=== PATIENT | male | born 1995 | race Asian ===

== ENCOUNTER 2017-05-15 16:05 | Emergency (ER) | payer BC ==
[2017-05-15] MEDS ORDERED: Amoxicillin/Clavulanate TAB* 875 MG PO ONE (18:49)
--- NOTE | 2017-05-15 19:03 | UC ---
Throat Pain/Nasal Gustavo HPI - HPI Summary HPI Summary: SEVEN DAYS OF SINUS PAIN, CONGESTION, SORE THROAT AND FEVER. - History of Current Complaint Chief Complaint: UCRespiratory Stated Complaint: SINUS PAIN,FEVER,CONGESTION Time Seen by Provider: 05/15/17 17:55 Hx Obtained From: Patient Onset/Duration: Gradual Onset, Lasting Weeks Severity: Moderate Cough: Nonproductive Associated Signs & Symptoms: Positive: Hoarseness, Sinus Discomfort, Nasal Discharge, Fever - Epiglottits Risk Factors Epiglottis Risk Factors: Negative - Allergies/Home Medications Allergies/Adverse Reactions: Allergies Allergy/AdvReac Type Severity Reaction Status Date / Time No Known Allergies Allergy Verified 06/07/16 15:14 Home Medications: Home Medications Methylphenidate ER TAB* [Concerta ER TAB*] 18 mg PO DAILY 05/15/17 [History Confirmed 05/15/17] Phenylephrine W/ Acetaminophen [Tylenol Sinus Congestion 5-325 mg] 1 tab PO 06/21 [History] Pseudoephedrine-Guaifenesin [Mucinex D 60-600 mg] 1 tab PO 05/15/17 [History] PMH/Surg Hx/FS Hx/Imm Hx Previously Healthy: Yes - Surgical History Surgical History: Yes Surgery Procedure, Year, and Place: TONSILLECTOMY AGE 13. SEPTOPLASTY 2011. LASIK - Family History Known Family History: Negative: Respiratory Disease - Social History Occupation: Student Lives: With Family Alcohol Use: None Substance Use Type: None Smoking Status (MU): Never Smoked Tobacco Review of Systems Constitutional: Fever, Chills Skin: Negative Eyes: Negative ENT: Sore Throat, Nasal Discharge, Sinus Congestion, Sinus Pain/Tenderness Respiratory: Cough Cardiovascular: Negative Gastrointestinal: Negative Genitourinary: Negative Motor: Negative Neurovascular: Negative Musculoskeletal: Negative Neurological: Negative Psychological: Negative All Other Systems Reviewed And Are Negative: Yes Physical Exam Triage Information Reviewed: Yes Appearance: Well-Appearing, No Pain Distress, Well-Nourished Vital Signs: Initial Vital Signs Temp 99.4 F 05/15/17 18:19 Pulse 55 05/15/17 18:19 Resp 18 05/15/17 18:19 BP 132/84 05/15/17 18:19 Pulse Ox 99 05/15/17 18:19 Vital Signs Reviewed: Yes Eye Exam: Normal ENT Exam: Normal ENT: Positive: Normal ENT inspection, Hearing grossly normal, TMs normal Dental Exam: Normal Neck exam: Normal Neck: Positive: Supple, Nontender Respiratory Exam: Other - COUGH Respiratory: Positive: Chest non-tender, Lungs clear, Normal breath sounds, No respiratory distress, No accessory muscle use Cardiovascular Exam: Normal Cardiovascular: Positive: RRR, No Murmur, Pulses Normal Abdominal Exam: Normal Musculoskeletal Exam: Normal Musculoskeletal: Positive: Strength Intact, ROM Intact Neurological Exam: Normal Psychological Exam: Normal Skin Exam: Normal Throat Pain/Nasal Course/Dx - Differential Dx/Diagnosis Differential Diagnosis/HQI/PQRI: Pharyngitis, Sinusitis, Tonsillitis, URI Provider Diagnoses: SINUSITIS Discharge - Discharge Plan Condition: Stable Disposition: HOME Prescriptions: Amoxicillin/Clavulanate TAB* [Augmentin TAB 875*] 875 mg PO BID #20 tab Patient Education Materials: Sinusitis (ED) Referrals: [facility] [Outside] [facility] [Outside] No Primary Care Phys,NOPCP [Primary Care Provider] -
[2017-05-15 19:32] VITALS: BP 123/94
== END 2017-05-15 19:00 | disposition home or self-care (01) ==
LOC: UCEAST 16:05
DX: J32.9 Chronic sinusitis, unspecified (principal)
CPT/HCPCS: 99212; A9270-GY; G0463